=== PATIENT | male | born 1950 ===

== ENCOUNTER → 2024-03-26 08:13 | Outpatient (BNVA) | payer OTHER, SELFPAY | PROVIDERS: Visit Provider Specialist | DX: G31.84 Mild cognitive impairment of uncertain or unknown etiology; R03.0 Elevated blood-pressure reading, without diagnosis of hypertension | CPT/HCPCS: 0346U; 36415; 82542; 96116; 99204; 99205 ==

== ENCOUNTER → 2024-04-07 09:37 | Outpatient (BNVA) | payer OTHER, SELFPAY | PROVIDERS: Visit Provider Specialist | DX: G31.84 Mild cognitive impairment of uncertain or unknown etiology (principal); R03.0 Elevated blood-pressure reading, without diagnosis of hypertension | CPT/HCPCS: 36415; 99214 ==

== ENCOUNTER 2024-05-14 10:46 | Outpatient (CLI) | payer OTHER, SELFPAY ==
--- NOTE | 2024-05-14 10:48 | MR_ITS ---
WS: [id number] MRI HEAD WITHOUT CONTRAST TECHNIQUE: Sagittal T1, T2 axial, T2 axial FLAIR, axial and coronal T1 images, axial susceptibility w eighted imaging, axial diffusion weighted images, and coronal T2 images were obtained. CLINICAL INFORMATION: G31.84 - Mild cognitive impairment of uncertain or unknow... COMPARISON: None. FINDINGS: No evidence of restricted diffusion to suggest acute ischemia. Mild small vessel changes with moderat e parenchymal volume loss slightly more prominent in the parietal lobes. Mild symmetric atrophy tempo ral lobes and hippocampal formations. Normal posterior fossa. Normal vascular flow voids at the skull base. No extra-axial fluid collections. No evidence of mass or mass effect. Tiny chronic lacunar inf arct RIGHT centrum semiovale. Paranasal sinuses and mastoid air cells are well aerated. Normal referral specialist ior nasopharynx. No hemosiderin on the susceptibly weighted images. MR/MR head wo con* [id number] IMPRESSION: 1. No evidence of restricted diffusion to suggest acute ischemia. 2. Mild small vessel changes. Moderate parenchymal volume loss slightly worse in the parietal lobes. 3. Mild symmetric atrophy temporal lobes and hippocampal formations. 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 4. No hemosiderin on susceptibility-weighted images. 5. Incidental cerebellar tonsillar ectopia.
== END 2024-05-14 10:47 | disposition home or self-care (01) ==
LOC: RAD 10:47
PROVIDERS: PCP Internal Medicine; Visit Provider Specialist
DX: G31.84 Mild cognitive impairment of uncertain or unknown etiology (principal); G31.89 Other specified degenerative diseases of nervous system; Q04.8 Other specified congenital malformations of brain
CPT/HCPCS: 70551

== ENCOUNTER → 2024-06-23 09:35 | Outpatient (BNVA) | payer OTHER, SELFPAY | PROVIDERS: PCP Internal Medicine; Visit Provider Specialist | DX: G31.84 Mild cognitive impairment of uncertain or unknown etiology; R03.0 Elevated blood-pressure reading, without diagnosis of hypertension | CPT/HCPCS: 99214 ==

== ENCOUNTER → 2025-03-28 09:16 | Outpatient (BNVA) | payer MEDICARE, SELFPAY | PROVIDERS: PCP Internal Medicine; Visit Provider Specialist | DX: G31.84 Mild cognitive impairment of uncertain or unknown etiology (principal); R03.0 Elevated blood-pressure reading, without diagnosis of hypertension; G47.10 Hypersomnia, unspecified | CPT/HCPCS: 99214 ==